=== PATIENT | female | born 1950 | race Caucasian/White ===

== ENCOUNTER 2024-03-09 10:45 | Outpatient (RCR) | payer MEDICARE, SELFPAY ==
--- NOTE | 2024-02-03 12:22 | PTOPEVAL1 ---
Assessment and note entered by Hi Andrade, PT Evaluation Information Assessment Status Evaluation Diagnosis Chronic Left Shoulder Pain Onset December 2023 Subjective Information Reports that she thought she was having a heart attack. She has pain in her armpit. She has pain at rest and with activity. Pain is not excruciating but she does get pain at night especially when laying on her shoulder. Heavy activity increases her pain. Repetitive activity also significantly increases her pain. Has straining feeling when reaching behind her back. Having some issue in her right shoulder but not at rest. Has history of rheumatic arthritis. Reported Pain Level Pain Score 1: Self Report Assessment PT Clinical Summary Patient presents with signs and symptoms consistent with shoulder impingement and likely early onset structural arthritis. NO ROM deficits are noted at this time. Significant periscapular strength is noted with impingement symptoms positive. Patient will benefit from skilled therapy to address deficits to maximize dominant shoulder function without pain. Plan of Care Interventions Electrical Stimulation,Manual Therapy,Neuro Re- education,Therapeutic Activities,Therapeutic Exercise PT Services Indicated Yes Treatment Frequency and 2x/week for 8 visits Duration These treatments will address the objective and functional deficits as defined above. The patient will be advanced safely and appropriately in order for the patient to progress towards his/her prior level of function. Additional exercises will be introduced and as well as a comprehensive home exercise program upon discharge, if needed, ?to ensure carryover of functional gains achieved in the clinic. This treatment plan has been reviewed and agreement upon by the patient.
--- NOTE | 2024-02-03 12:23 | OPREHPOC ---
Outpatient Therapy Plan of Care This is a Multidisciplinary Plan of Care that may contain components documented by all disciplines (PT, OT, and ST.) PT Problem 1 PT Problem #1 Knowledge Deficit PT Goal 1 Goal Patient will be independent with HEP Target Visit 4 PT Problem 2 PT Problem #2 Pain PT Goal 1 Goal Report no loss of sleep secondary to pain Target Visit 8 PT Problem 3 PT Problem #3 Impaired Strength PT Goal 1 Goal Improve jacob periscapular strength to 4+/5 to improve scapular stabilization PT Problem 4 PT Problem #4 Impaired Functional ADLs PT Goal 1 Goal Demonstrate ability to perform 20# floor to shelf lift without pain for functional improvement return Target Visit 8
--- NOTE | 2024-03-04 08:13 | PCPTNOTE ---
Patient unable to be seen March 03 due to therapist out for illness.
--- NOTE | 2024-03-09 11:35 | OPREHPOC ---
Outpatient Therapy Plan of Care This is a Multidisciplinary Plan of Care that may contain components documented by all disciplines (PT, OT, and ST.) PT Problem 1 PT Problem #1 Knowledge Deficit PT Goal 1 Goal Patient will be independent with HEP Target Visit 4 Progress Met PT Problem 2 PT Problem #2 Pain PT Goal 1 Goal Report no loss of sleep secondary to pain Target Visit 8 Progress Met PT Problem 3 PT Problem #3 Impaired Strength PT Goal 1 Goal Improve jacob periscapular strength to 4+/5 to improve scapular stabilization Progress Met PT Problem 4 PT Problem #4 Impaired Functional ADLs PT Goal 1 Goal Demonstrate ability to perform 20# floor to shelf lift without pain for functional improvement return Target Visit 8 Progress Met
--- NOTE | 2024-03-09 11:35 | PTOPDC ---
Assessment and note entered by Hi Andrade, PT Evaluation Information Assessment Status Progress Diagnosis Chronic Left Shoulder Pain Onset December 2023 Subjective Information Reports that she is a little sore today from working in the yard. Overall she feels that she is good to go. She has learned a lot and better understands her posture and deficits to work on. Overall feels ready for discharge. Reported Pain Level Pain Score 1: Self Report Assessment PT Clinical Summary Patient has met all goals for therapy and is suitable for discharge at this time. Independent with HEP. Plan of Care PT Services Indicated Yes
== END 2024-03-09 11:52 | disposition home or self-care (01) ==
LOC: ANHGOSHPT 10:45
PROVIDERS: PCP Internal Medicine; Visit Provider Internal Medicine
DX: M25.512 Pain in left shoulder (principal); G89.29 Other chronic pain
CPT/HCPCS: 97110; 97112; 97140; 97161; 97530; 99199